=== PATIENT | female | born 1995 | race Hispanic/Latino ===

== ENCOUNTER 2021-11-29 20:33 | Emergency (ER) | payer SELFPAY ==
[2021-11-29 20:34] VITALS: BP 125/88; PULSE 88; RESP 16; TEMP 36.3; O2SAT 100; BMI 21.7
--- NOTE | 2021-11-29 20:53 | ED.VIS.GI ---
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 [place]) Abdominal Pain/Flank Pain Onset: Yesterday Context: Sudden Onset Timing: Continuous Quality: Aching and Burning Location: Diffuse Current Severity: Mild Maximum Severity: Severe Worsened by: Movement and - (Stretching out, even drinking water) Relieved by: Nothing Nausea/Vomiting/Emesis GI Symptom: Positive for Nausea; Negative for Vomiting Diarrhea/Melena/Hematochezia GI Symptom: Positive for Diarrhea (X2) Stool Quality: Positive for Loose; Negative for Mucous, Black, Maroon and BRB per rectum Associated Symptoms Associated Symptoms: Negative for Dysuria, Frequency and Hematuria LMP: Menstrual period ended 5 days ago Narrative Narrative: Patient 26-year-old female with no past medical history on no medication with no allergies who presents with diffuse abdominal pain that started yesterday. The pain is gotten worse. The pain is generalized. She states the pain is worse even if she drinks water. Movement of her legs or stretching out causes her increased pain. There is no history of trauma. She has had 2 loose stools with no blood or mucus. She did take Kaopectate with no improvement. She denies dysuria, frequency, urgency or hematuria. She denies prior history of abdominal pain. There is no family history of cholelithiasis. She denies history of smoking, alcohol use or drug use. Prior similar symptoms: No Recent Illness/Hospitalization: No PFSH PFSH Medical History no medical history no medical history Home Medications dicyclomine 20 mg PO TIDAC #20 capsule 11/29/21 [Rx Last Taken Unknown] Allergy/AdvReac Type Severity Reaction Status Date / Time No Known Allergies Allergy Verified 11/29/21 20:57 Family History no significant family his no significant family history Surgical History no surgical history no surgical history Social History (Updated 11/29/21 @ 20:[address] Addy Castaneda MD) household members: significant other Smoking Status: Never smoker alcohol intake: never substance use type: does not use ROS ROS ED Constitutional Constitutional ED: Denies chills, fever(s), subjective, sweats or weight loss ENT ENT ED: Denies ear pain, rhinorrhea or sore throat Cardiovascular Cardiovascular: Denies chest pain, orthopnea, palpitations, paroxysmal nocturnal dyspnea or racing heartbeat Respiratory/Chest Respiratory/Chest: Denies cough, dyspnea, dyspnea on exertion, orthopnea or paroxysmal nocturnal dyspnea Gastrointestinal Gastrointestinal: Reports abdominal pain, diarrhea and nausea; Denies constipation, melena or vomiting Genitourinary Genitourinary ED: Reports LMP (females 10-50) Details: Comment: (Ended 5 days ago); Denies dysuria, hematuria or urinary frequency Musculoskeletal Musculoskeletal: Denies arthralgias, back pain, myalgias or neck pain Integumentary Denies abscess, Abrasions or rash Neurologic Neurologic: Denies headache(s) or weakness Hematologic/Lymphatic Hematologic/Lymphatic: Denies easy bleeding or easy bruising EXAM Physical Exam Const Vital Signs: 11/29/21 20:34 11/29/21 21:19 Temperature 97.4 F L Temperature Source Temporal Pulse Rate 88 87 Respiratory Rate 16 16 Blood Pressure 125/88 H 123/75 H Blood Pressure Mean 100 91 Pulse Ox 100 100 Oxygen Delivery Method Room Air Positive well nourished and well developed General Appearance ED: well developed and NAD; Negative for pallor HEENT Reports moist mucous membranes HEENT Narrative: Uvula midline. Postpharyngeal erythema exudate. Mucosa is moist. normocephalic and atraumatic Eyes PERRL and EOMs intact bilaterally General Eye ED: Negative for pale conjunctiva or scleral icterus Neck no lymphadenopathy, supple and no JVD Resp normal respiratory effort and clear to auscultation bilaterally Cardio regular rate, regular rhythm, S1 normal heart sound, S2 normal heart sound and no murmurs GI no masses; Negative for non-tender or non-distended Inspection: other Other Details: Planes of percussion tenderness suprapubic and left lower quadrant. Auscultation: hyperactive bowel sounds; Negative for normoactive bowel sounds Palpation: soft, tender LUQ (Greatest in left upper quadrant.), guarding LUQ and rebound tenderness present; Negative for rigid Back/Spine Thoracic Spine / Upper Back: Negative for thoracic spinal tenderness Lumbar Spine / Lower Back: Negative for lumbar spinal tenderness Extremity full ROM General Extremety ED: Negative for edema or tenderness General Extremity: Negative for edema Neuro CN's II-XII intact bilaterally Sensorium / Orientation: alert and oriented to person Psych mental status grossly normal and thought process normal Skin no wounds General Skin Exam: Negative for jaundice or pallor Lesions: no lesions Rashes: no rashes and No rashes noted MDM MDM MDM Narrative Medical decision making narrative: Patient with significant abdominal pain specifically left upper quadrant. Will obtain lipase to assess for pancreatitis. Hepatic profile to assess liver enzymes. Based on history and physical uncertain what may be causing the pain. Will obtain screening labs, UA and test. Patient was informed that she may require imaging. She did request something for nausea and pain. She was treated with Zofran and morphine. Lab Data Attestation: I reviewed the patient's lab results. Lab results narrative: With elevated white count guarding CT of the abdomen was obtained. CT of the abdomen reveals right ovarian cyst and findings consistent with gastroenteritis. Will discharge to home with appropriate home-going instructions and prescription for Bentyl Labs: Laboratory Results - last 24 hr 11/29/21 11/29/21 11/29/21 21:00 21:00 21:00 WBC 11.3 H RBC 5.09 Hgb 14.1 Hct 42.2 MCV 82.9 MCH 27.7 MCHC 33.4 RDW Std Deviation 36.9 RDW Coeff of Arvind 12.1 Plt Count 234 MPV 10.9 Immature Gran % (Auto) 0.300 Neut % (Auto) 74.2 H Lymph % (Auto) 13.3 L Banner % (Auto) 8.8 Eos % (Auto) 3.2 Baso % (Auto) 0.2 Absolute Neuts (auto) 8.4 H Absolute Lymphs (auto) 1.50 Nucleated RBC % 0 Sodium 139 Potassium 3.4 L Chloride 107 Carbon Dioxide 28.0 Anion Gap 4 L BUN 10 Creatinine 0.67 Estim Creat Clear Calc 95.17 Est GFR (MDRD) Af Amer 135 Est GFR (MDRD) Non-Af 112 BUN/Creatinine Ratio 14.9 Glucose 102 Calcium 8.9 Total Bilirubin 0.80 AST 12 L ALT 22 Alkaline Phosphatase 61 Total Protein 7.6 Albumin 3.9 Globulin 3.7 Albumin/Globulin Ratio 1.1 Lipase 98 Serum , Qual NEGATIVE Urine Color Urine Clarity Urine pH Ur Specific [place] Urine Protein Urine Glucose (UA) Urine Ketones Urine Occult Blood Urine Nitrite Urine Bilirubin Urine Urobilinogen Ur Leukocyte Esterase Urine RBC Urine WBC Ur Squamous Epith Cells Urine Bacteria Urine Mucus 11/29/21 21:00 WBC RBC Hgb Hct MCV MCH MCHC RDW Std Deviation RDW Coeff of Arvind Plt Count MPV Immature Gran % (Auto) Neut % (Auto) Lymph % (Auto) Banner % (Auto) Eos % (Auto) Baso % (Auto) Absolute Neuts (auto) Absolute Lymphs (auto) Nucleated RBC % Sodium Potassium Chloride Carbon Dioxide Anion Gap BUN Creatinine Estim Creat Clear Calc Est GFR (MDRD) Af Amer Est GFR (MDRD) Non-Af BUN/Creatinine Ratio Glucose Calcium Total Bilirubin AST ALT Alkaline Phosphatase Total Protein Albumin Globulin Albumin/Globulin Ratio Lipase Serum , Qual Urine Color Yellow Urine Clarity Sl. Cloudy Urine pH 6.0 Ur Specific [place] 1.015 Urine Protein Negative Urine Glucose (UA) Normal Urine Ketones 5 H Urine Occult Blood 25 H Urine Nitrite Negative Urine Bilirubin Negative Urine Urobilinogen Normal Ur Leukocyte Esterase Negative Urine RBC 0-5 SEEN Urine WBC 0-5 SEEN Ur Squamous Epith Cells 0-5 SEEN Urine Bacteria 0 SEEN Urine Mucus 0 SEEN Radiography Diagnostic Testing: Clinical Impression(s) from Imaging Studies Abdomen/Pelvis CT 11/29/21 21:37 IMPRESSION: 1. Fluid within nondistended small bowel without wall thickening or surrounding inflammation can be normal or can be seen in gastroenteritis in the appropriate clinical setting. 2. 2.7 cm dominant follicular cyst involving the right ovary. Electronically Signed: Kahlil Bermudez MD at 22:21 EST , Discharge Plan Triage Chief Complaint: Abd Pain ED Provider: Addy Castaneda Dx/Rx/DC Orders Clinical Impression: Abdominal pain, Diarrhea, Follicular cyst of right ovary Instructions: ED Gastroenteritis, Viral (Adult) Prescriptions: New dicyclomine 10 MG capsule 20 mg PO TIDAC Qty: 20 RF: 0 Primary Care Provider: Care Physician,No Primary Referrals: Naomi Yang [NON-STAFF] - 3-5 Days if not improving Care Physician,No Primary [Primary Care Provider] - Disposition Disposition: Home, Self Care
[2021-11-29 21:12] LABS: Bacteria 0 SEEN /hpf (None Seen); Mucous, Urine 0 SEEN /hpf (<or=2+)
[2021-11-29 21:13] LABS: Absolute Neutrophil Count 8.4 X10^3/uL (2.0-7.7); Basophil# 0.02 X10^3/uL; Basophil% 0.2 % (0-1); Eosinophil# 0.36 X10^3/uL; Eosinophils% 3.2 % (0-5); Hematocrit 42.2 % (37-47); Hemoglobin 14.1 g/dL (12.0-15.0); Lymphocyte % 13.3 % (19-41); Mean Corp Hgb Conc 33.4 g/dL (32-36); Mean Corpuscular Hgb 27.7 pg (27.0-32.0); Mean Corpuscular Volume 82.9 fL (81-99); Mean Platelet Vol. 10.9 fl (6.2-12.0); Monocyte# 0.99 X10^3/uL; Monocyte% 8.8 % (0-10); NRBC Flagged by Analyzer 0 % (0-5); Neutrophil # 8.35 X10^3/uL (2.7-7.7); Neutrophil % 74.2 % (47-70); Platelet Count 234 K/mm3 (150-450); RBC Distribution Width CV 12.1 % (11.6-14.6); RBC Distribution Width SD 36.9 fl (35.1-43.9); Red Blood Count 5.09 M/mm3 (4.2-5.4); White Blood Count 11.3 K/mm3 (4.4-11.0)
[2021-11-29] MEDS: Morphine 4 MG/ML Syringe IV (21:14)
[2021-11-29] MEDS: Ondansetron 4 MG/2 ML Vial IV (21:14)
[2021-11-29] MEDS: 0.9% Normal Saline 1,000 ML 125 ML IV (21:15)
[2021-11-29 21:17] LABS: Color, Urine Yellow (Yellow); Glucose, Dipstick Normal (Normal); Ketone-Dipstick 5 mg/dl (Negative); Leukocyte Esterase-Dipstick Negative /ul (Negative); Nitrite-Dipstick Negative (Negative); Occult Blood-Urine 25 /ul (Negative); Protein-Dipstick Negative (Negative); Specific Gravity, Urine 1.015 (1.002-1.030); Urine Bilirubin Dipstick Negative (Negative); Urine Clarity Sl. Cloudy (Clear); Urine Urobilinogen Normal (Normal)
[2021-11-29 21:19] VITALS: BP 123/75; PULSE 87; RESP 16; O2SAT 100
[2021-11-29 21:24] LABS: Red Blood Cells-Urine 0-5 SEEN /hpf (0-5); Squamous Epithelial Cells - UA 0-5 SEEN /hpf (5-10); White Blood Cells 0-5 SEEN /hpf (0-5)
--- NOTE | 2021-11-29 21:25 | CM.ED ---
Referral Reason: No insurance and no PCP Referral Source: Case Find SW noted that patient had no insurance and no PCP. SW met with patient. SW provided her with financial packet and healthcare Provider Directory. Patient was asked if she had any other issues and concerns and she said no. Plan: Resources provided iTara POWELL
[2021-11-29 21:27] LABS: Internal QC Validated? YES +Cl - CLEAR BKGD; Pregnancy, Serum, hCG Quali. NEGATIVE Negative
[2021-11-29 21:30] LABS: ALB/GLOB Ratio 1.1 RATIO (0.9-2.4); AST(SGOT) 12 U/L (15-37); Alanine Aminotransfer ALT/SGPT 22 U/L (13-56); Albumin, Serum 3.9 g/dL (3.2-5.0); Alkaline Phosphatase 61 U/L (45-117); Anion Gap 4 (5-15); BUN 10 mg/dL (7-18); BUN/Creat Ratio 14.9 RATIO (10-20); Calcium,Total 8.9 mg/dL (8.5-10.1); Chloride 107 mmol/L (98-107); Creatinine, Serum 0.67 mg/dL (0.55-1.02); EST Glomerular Filtration Rate 112 mL/min (>60); Est Glom Filt Rate - Afr Amer 135 mL/min (>60); Estimated Creatinine Clearance 95.17 ml/min; Globulin 3.7 g/dL (2.2-4.2); Glucose 102 mg/dL (74-106); Lipase 98 U/L (73-393); Potassium 3.4 mmol/L (3.5-5.1); Protein, Total 7.6 g/dL (6.4-8.2); Sodium Level 139 mmol/L (136-145)
--- NOTE | 2021-11-29 21:37 | CT_ITS ---
EXAM: CT ABDOMEN AND PELVIS WITH INTRAVENOUS CONTRAST CLINICAL INDICATION: Abdominal pain, nausea, loss of appetite, white co TECHNIQUE: Helically acquired images were obtained of the abdomen and pelvis with intravenous contrast. CTDIvol = ( 9.32 ) mGy, DLP = ( 261.51 ) mGycm This CT exam was performed using one or more of the following dose reduction techniques: automated exposure control, adjustment of the mA and/or kV according to patient size, and/or use of iterative reconstruction technique. This report was created using [employer] report [employer] technology. CONTRAST: IV 100mL Isovue-370 COMPARISON: None. FINDINGS: LOWER THORAX: Unremarkable. Lung bases are clear. No cardiomegaly. No significant pericardial effusion. ABDOMEN: LIVER: Unremarkable. Homogeneous. No focal mass. GALLBLADDER AND BILE DUCTS: Unremarkable. No calcified gallstones. No gallbladder distention or wall edema. No intra- or extrahepatic biliary ductal dilation. PANCREAS: Unremarkable. No focal cystic or solid mass. SPLEEN: Unremarkable. Normal size without focal cystic or solid mass. ADRENALS: Unremarkable. No nodules. KIDNEYS AND URETERS: Unremarkable. Normal renal size and position. No hydronephrosis. STOMACH AND BOWEL: Fluid within nondistended small bowel without wall thickening or surrounding inflammation can be normal or can be seen in gastroenteritis in the appropriate clinical setting. PELVIS: APPENDIX: No evidence of acute appendicitis. BLADDER: Unremarkable. REPRODUCTIVE: 2.7 cm dominant follicular cyst involving the right ovary. ABDOMEN and PELVIS: INTRAPERITONEAL SPACE: Unremarkable. No ascites or other fluid collection. No free air. BONES/JOINTS: Unremarkable. No suspicious lytic or blastic abnormality. SOFT TISSUES: Unremarkable. No discrete abdominal or pelvic wall hernia. VASCULATURE: Unremarkable. Abdominal aorta is non-dilated. LYMPH NODES: Unremarkable. No enlarged lymph nodes. CT/Abdomen/Pelvis W IV Cont ONLY IMPRESSION: 1. Fluid within nondistended small bowel without wall thickening or surrounding inflammation can be normal or can be seen in gastroenteritis in the appropriate clinical setting. 2. 2.7 cm dominant follicular cyst involving the right ovary. Electronically Signed: Kahlil Bermudez MD at 22:21 EST Reading Location ID and State: [facility] / [place] Tel , Service support ,
[2021-11-29 22:45] VITALS: BP 108/74; PULSE 79; RESP 16; O2SAT 100
== END 2021-11-29 22:49 | disposition home or self-care (01) ==
PROVIDERS: Emergency Provider Emergency Medicine; Visit Provider Emergency Medicine
DX: N83.01 Follicular cyst of right ovary (principal); R10.84 Generalized abdominal pain; R19.7 Diarrhea, unspecified; R11.0 Nausea
CPT/HCPCS: 74177; 80053; 81001; 83690; 84703; 85025; 96361; 96374; 96375; 99283; J7030; Q9967; A4216; J2405

== ENCOUNTER → 2025-05-05 | Outpatient (CLI) | payer SELFPAY ==
[2025-05-08 11:08] LABS: Age Gdln ACOG Testing 30-65 (.); HPV APTIMA, High Risk Negative (Negative)
== END | disposition home or self-care (01) ==
PROVIDERS: PCP Family Medicine; Visit Provider Family Medicine
DX: Z12.4 Encounter for screening for malignant neoplasm of cervix (principal)
CPT/HCPCS: 87624; 88175; G0145